=== PATIENT | male | born 1985 | race African-American/Black ===

== ENCOUNTER 2021-04-02 09:02 | Emergency (ER) | payer SELFPAY ==
[~2021-04-02] VITALS: Ht 182.9 cm; Wt 79.5 kg
[2021-04-02 09:09] VITALS: Ht 182.9 cm; Wt 79.5 kg
[2021-04-02 09:29] LABS: BASOPHILS 0.1 % (0-2); EOSINOPHILS 0.1 % (0-7); HEMATOCRIT 44.7 % (42.0-54.0); HEMOGLOBIN 15.4 g/dL (13.5-17.5); IMMATURE GRANULOCYTES 0.2 % (0-5); LYMPHOCYTE ABS# 1.05 10x3/uL (1.32-3.57); LYMPHOCYTES 11.6 % (15-50); MCH 27.1 pg (26.0-34.0); MCHC 34.5 g/dL (31.0-37.0); MCV 78.6 fL (80.0-100.0); MEAN PLATELET VOLUME 9.8 fL (7.4-10.4); NEUTROPHIL ABS# 7.26 10x3/uL (1.78-5.38); PLATELET COUNT 222 10x3/uL (130-400); RBC 5.69 10x6/uL (4.20-6.10); RDW 14.6 % (11.5-14.5); WBC 9.1 10x3/uL (4.8-10.8)
[2021-04-02 10:07] LABS: BILIRUBIN - TOTAL 1.6 mg/dL (0.2-1.3); CALCIUM 9.7 mg/dL (8.5-10.1); CREATININE - SERUM 1.2 mg/dL (0.6-1.3); POTASSIUM - SERUM 3.7 mmol/L (3.5-5.1); PROTEIN - SERUM 8.2 g/dL (6.4-8.2)
[2021-04-02 10:11] LABS: CKMB 1.5 U/L (0.0-3.6)
[2021-04-02 10:41] LABS: ALBUMIN 4.9 g/dL (3.4-5.0); ANION GAP 18.4 mmol/L (8-16); CARBON DIOXIDE 23.3 mmol/L (21.0-32.0)
[2021-04-02 11:29] VITALS: BP 138/72
[2021-04-02 12:19] LABS: BILIRUBIN NEGATIVE (NEGATIVE); KETONE 4+ mg/dL (< 1+); NITRITE NEGATIVE (NEGATIVE); SQUAMOUS EPITHELIAL <1 HPF (0-4); UROBILINOGEN 3 mg/dL (< 2); WHITE CELLS - URINE 4 HPF (0-1)
== END 2021-04-03 06:34 | disposition home or self-care (01) ==
LOC: D.ER 09:02
PROVIDERS: Family Medicine
DX: E86.0 Dehydration (principal); X30.XXXA Exposure to excessive natural heat, initial encounter; Y93.9 Activity, unspecified; Y92.9 Unspecified place or not applicable; R55 Syncope and collapse